=== PATIENT | male | born 1990 | race Caucasian/White ===

== ENCOUNTER 2019-07-07 14:37 | Emergency (ER) | payer BC ==
[~2019-07-07] VITALS: Ht 182.9 cm; Wt 99.8 kg
--- NOTE | 2019-07-07 14:45 | NUR ---
ED Nurse Note: Patient brought in by ambulance RA 59 from a bar, per EMS, patient was sitting on a bar stool, fell back on ground level, patient fell and hit his head. left eyebrow lac noted. patient is alert awake arousable with name.
--- NOTE | 2019-07-07 14:47 | Emergency Room Report ---
History of Present Illness General Chief Complaint: Alcohol Intoxication Source: Patient, Family Member, EMS Present Illness HPI Patient is a 28-year-old male brought in by EMS altered mental status. Reportedly patient had fallen off of a barstool just prior to arrival. Patient had reportedly had some injury to his head earlier in the day. Patient was noted to be recently at [facility] for similar symptoms. History is obtained from EMS.Per patient's father patient is an alcoholic and drinks daily probably 1 1/2 L of vodka a day.Patient reportedly had a fall yesterday in addition to fall today. Allergies: Coded Allergies: No Known Allergies (Unverified , 07/07/19) Patient History Past Medical History: see triage record Reviewed Nursing Documentation: PMH: Agreed; PSxH: Agreed Review of Systems All Other Systems: limited - Review of systems: Review systems is limited by patient's being a poor historian Physical Exam Vital Signs Date Time Temp Pulse Resp B/P (MAP) Pulse Ox O2 Delivery O2 Flow Rate FiO2 07/07/19 14:38 98.4 98 16 188/90 (122) 97 Room Air Sp02 EP Interpretation: reviewed, normal General Appearance: normal inspection, well appearing, no apparent distress, alert, GCS 15 Head: other - Occipital hematoma no palpable deformity ENT: normal ENT inspection, hearing grossly normal, normal voice Neck: normal inspection, full range of motion, supple, no bony tend Respiratory: normal inspection, lungs clear, normal breath sounds, no respiratory distress, no retraction, no wheezing Cardiovascular #1: regular rate, rhythm, no edema Gastrointestinal: normal inspection, normal bowel sounds, non tender, soft, no guarding, no hernia Genitourinary: no CVA tenderness Musculoskeletal: normal inspection, back normal, normal range of motion Neurologic: normal inspection, alert, responsive, speech normal Psychiatric: normal inspection, judgement/insight normal, mood/affect normal Medical Decision Making Diagnostic Impression: Primary Impression: Acute alcoholic intoxication Additional Impression: Head contusion ER Course Patient presented for altered mental status. Differential diagnosis include was not limited to Last Vital Signs Date Time Temp Pulse Resp B/P (MAP) Pulse Ox O2 Delivery O2 Flow Rate FiO2 07/07/19 14:38 98.4 98 16 188/90 (122) 97 Room Air Albino Brooks MD Jul 07, 2019 14:47
[2019-07-07 14:55] VITALS: BP 133/68
--- NOTE | 2019-07-07 14:55 | NUR ---
ED Nurse Note: patient taken to CT
--- NOTE | 2019-07-07 15:19 | NUR ---
HAND-OFF: Report given to Ruby CHU. patient still in ct scan.
[2019-07-07 15:25] LABS: BASOPHILS % (AUTO) 3.9 % (0.0-2.0); EOSINOPHILS % (AUTO) 1.5 % (0.0-3.0); HEMATOCRIT 44.1 % (42.0-52.0); HEMOGLOBIN 14.8 G/DL (14.2-18.0); LYMPHOCYTES % (AUTO) 23.1 % (20.0-45.0); MEAN CORPUSCULAR VOLUME 89 FL (80-99); MONOCYTES % (AUTO) 6.5 % (1.0-10.0); PLATELET COUNT 406 K/UL (150-450); RED BLOOD COUNT 4.96 M/UL (4.70-6.10); RED CELL DISTRIBUTION WIDTH 13.7 % (11.6-14.8); WHITE BLOOD COUNT 8.5 K/UL (4.8-10.8)
[2019-07-07 15:33] LABS: ANION GAP 14 mmol/L (5-15); BLOOD UREA NITROGEN 8 mg/dL (7-18); CALCIUM 8.6 MG/DL (8.5-10.1); CARBON DIOXIDE 29 MMOL/L (21-32); CHLORIDE 95 MMOL/L (98-107); CREATININE 0.9 MG/DL (0.55-1.30); POTASSIUM 3.9 MMOL/L (3.5-5.1); SODIUM 138 MMOL/L (136-145)
[2019-07-07 15:47] LABS: ALANINE AMINOTRANSFERASE 44 U/L (12-78); ALBUMIN 4.2 G/DL (3.4-5.0); ALBUMIN/GLOBULIN RATIO 1.1 (1.0-2.7); ALKALINE PHOSPHATASE 39 U/L (46-116); ASPARTATE AMINO TRANSFERASE 58 U/L (15-37); BILIRUBIN,TOTAL 0.3 MG/DL (0.2-1.0)
--- NOTE | 2019-07-07 15:53 | Diagnostic Imaging Report ---
Indication: Altered mental status Technique: Contiguous 5 mm thick transaxial imaging of the head obtained in a Siemens Sensation [address] scanner. Soft tissue and bone windows generated. Automatic Exposure Control was utilized. Total Dose length Product (DLP): [address] Dose Index Volume (CTDIvol): 62.7 mGy Comparison: none Findings: The size and configuration of the cortical sulci, basal cisterns, and ventricles are within normal limits for age. There is no mass effect, midline shift, or edema identified. There is no evidence of acute hemorrhage or abnormal intra-axial or extra-axial fluid collections. The bones and soft tissues are unremarkable. Impression: No mass effect, edema or acute bleed. The CT scanner at [facility] is accredited by the [employer] and the scans are performed using dose optimization techniques as appropriate to a performed exam including Automatic Exposure control.
[2019-07-07] MEDS ORDERED: Thiamine HCl 100 MG in D5W 55 ML IVPB ONE (16:15)
[2019-07-07] MEDS ORDERED: GABAPENTIN400 MG ORAL (17:32)
[2019-07-07] MEDS ORDERED: PROPRANOLOL HCL40 MG ORAL (17:32)
[2019-07-07] MEDS ORDERED: DEPAKOTE ER500 MG ORAL (17:32)
[2019-07-07 17:39] VITALS: BP 120/56
--- NOTE | 2019-07-07 17:40 | NUR ---
ED Nurse Note:pt. is calmer now receiving IV fluids, family is at bed side
--- NOTE | 2019-07-07 19:05 | NUR ---
HAND-OFF: Report given to Deepali.
[2019-07-07] MEDS ORDERED: LORazepam 1mg tab ORAL ONE (19:45)
[2019-07-07 20:00] VITALS: BP 120/56
[2019-07-07] MEDS ORDERED: LORazepam Inj 2mg/ml 1ml IV ONE (20:00)
--- NOTE | 2019-07-07 20:00 | NUR ---
ER DISCHARGE NOTE: Patient is cleared to be discharged per ERMD, pt is aox4, on room air, with stable vital signs. pt was given dc and prescription instructions, pt was able to verbalize understanding, pt id band and iv site removed without complications. pt is able to ambulate with steady gait. pt took all belongings.
== END 2019-07-07 20:00 | disposition home or self-care (01) ==
LOC: EDBD 14:37 → EMR 15:00
DX: S00.93XA Contusion of unspecified part of head, initial encounter (principal); F10.129 Alcohol abuse with intoxication, unspecified; W08.XXXA Fall from other furniture, initial encounter; Y92.9 Unspecified place or not applicable
CPT/HCPCS: 36415; 70450; 80053; 80307; 85025; 96365; 96375; 99284; G0480; J2405; 80329